=== PATIENT | female | born 1945 | race Caucasian/White ===

== ENCOUNTER 2021-08-09 14:38 | Outpatient (CLI) | payer MEDICARE ==
[~2021-08-09 14:38] MED LIST: ACET325T53 PO; Bisacodyl RC; Diazepam PO; Docusate Sodium PO; HYDR-3974 PO; Loratadine PO; RIVA10TA PO; SIMV20TA2 PO
[2021-08-16] MEDS ORDERED: FAMO20TA80 PO (13:53)
[2021-08-16] MEDS ORDERED: DOCU100C36 PO (13:53)
[2021-08-16] MEDS ORDERED: RIVA10TA PO (13:53)
== END 2021-08-09 23:59 | disposition home or self-care (01) ==
LOC: LAB 14:38
PROVIDERS: ATTEND Specialist
DX: Z53.8 Procedure and treatment not carried out for other reasons (principal)
CPT/HCPCS: U0003

== ENCOUNTER 2021-08-15 05:07 | Inpatient (IN) | payer MEDICARE, BC ==
[~2021-08-15] VITALS: Ht 157.5 cm; Wt 72.6 kg
--- NOTE | 2021-08-15 06:33 | NUR ---
DAY SURGERY NOTES PATIENT ARRIVED AT 0530. AOx4, ABLE TO MAKE NEEDS KNOWN. ON RA AND TOLERATING WELL. NO SOB NOTED. NO S/SX OF RESPIRATORY DISTRESS NOTED. NO CURRENT IV ACCESS. SAFETY PRECAUTIONS IN PLACE: BED IN LOWEST, LOCKED POSITION, SIDERAILS UPx2, AND BRAKES ON. CALL LIGHT AND TABLE WITHIN REACH. CONSENTS OBTAINED. PATIENT STATES SHE WAS NPO SINCE 1900 LAST NIGHT (08/14/2021). WILL CONTINUE TO MONITOR.
[2021-08-15] MEDS ORDERED: POLYMYXIN B SULFATE 500,000 UNITS ONE (06:39)
[2021-08-15] MEDS ORDERED: ANESTHESIA TRAY IN PYXIS 1 EA TRAY MC ONE (06:40)
[2021-08-15] MEDS ORDERED: BUPIVACAINE 0.5 % PF 150 MG/30 ML VIAL ONE (06:40)
[2021-08-15] MEDS ORDERED: FENTANYL PF 100MCG/2ML AMPUL ONE (06:41)
[2021-08-15] MEDS ORDERED: ROCURONIUM BROMIDE 50 MG/5 ML ONE (06:42)
[2021-08-15] MEDS ORDERED: HYDROMORPHONE INJ 2 MG/ML DISP.SYRIN ONE (06:42)
[2021-08-15] MEDS ORDERED: TRANEXAMIC ACID 3,000 MG in SODIUM CHLORIDE IRRIG SOLUTION 70 ML IR ONE (07:00)
--- NOTE | 2021-08-15 07:06 | NUR ---
PT LEFT FLOOR @ 0640 WITH OR NURSES
[2021-08-15] MEDS ORDERED: hydrALAZINE HCL IV 20 MG VIAL ONE (09:22)
[2021-08-15] MEDS ORDERED: HYDROMORPHONE 1 MG/1 ML DISP.SYRIN ONE (09:34)
[2021-08-15] MEDS ORDERED: ACETAMINOPHEN 325 MG TABLET PO PRN ×3 (10:00→15:30)
[2021-08-15] MEDS ORDERED: BISACODYL SUPP (10 MG) 10 MG/SUPP.RECT SUPP.RECT RC PRN ×2 (10:00→15:30)
[2021-08-15] MEDS ORDERED: ONDANSETRON HCL/PF 4 MG/2 ML VIAL IVP PRN ×2 (10:00→11:00)
[2021-08-15] MEDS ORDERED: HYDROCODONE/APAP 5/325MG TABLET PO PRN (10:00)
[2021-08-15] MEDS ORDERED: ZOLPIDEM TARTRATE 5 MG TABLET PO PRN ×2 (10:00→11:00)
[2021-08-15] MEDS ORDERED: SENNOSIDES 8.6 MG TABLET PO PRN (10:00)
[2021-08-15] MEDS ORDERED: DOCUSATE SODIUM 250 MG CAPSULE PO PRN ×2 (10:00→15:30)
--- NOTE | 2021-08-15 10:20 | NUR ---
Patient admitted from recovery room, admit Dx is S/P left shoulder arthroplasty reported by marlen. Patient AO x 4, able to responds all stimuli. Respiratory even and unlabored on room air. Kept elevated HOB for ensure airway/aspiration precaution and remains lower position of the bed for safety. call light within reach, will continue to monitor.
[2021-08-15] MEDS: HYDROMORPHONE 1 MG/1 ML DISP.SYRIN IV PRN ×4 (10:38→21:31)
[2021-08-15] MEDS ORDERED: MORPHINE SULFATE INJ 2 MG/ML DISP.SYRIN IV PRN (11:00)
[2021-08-15] MEDS: DOCUSATE SODIUM 100 MG CAPSULE PO SCH ×2 (11:00→17:27)
[2021-08-15] MEDS ORDERED: MAGNESIUM HYDROXIDE 30 ML UDC PO PRN (11:00)
[2021-08-15] MEDS ORDERED: Z GUARD REMEDY 4 OZ OINT TP PRN (11:00)
[2021-08-15] MEDS ORDERED: MAG HYDROX/AL HYDROX/SIMETH 30 ML UDC PO PRN ×2 (11:00→12:00)
[2021-08-15] MEDS ORDERED: IV NS 0.9% 1,000 ML IV PRN (11:00)
[2021-08-15] MEDS ORDERED: HYDROCODONE/APAP 10/325MG TABLET PO PRN (11:00)
[2021-08-15] MEDS ORDERED: HYDROMORPHONE 1 MG/1 ML DISP.SYRIN IV ONE (11:42)
[2021-08-15 12:00] VITALS: BP 118/62
[2021-08-15] MEDS ORDERED: ONDANSETRON HCL/PF 4 MG/2 ML VIAL IV PRN (12:00)
[2021-08-15] MEDS ORDERED: MENTHOL/CETYLPYRD (CEPACOL) 1 LOZ LOZENGE PO PRN (12:00)
[2021-08-15] MEDS ORDERED: diphenhydrAMINE HCL 25 MG CAPSULE PO PRN (12:00)
[2021-08-15] MEDS ORDERED: DIAZEPAM 5 MG TABLET PO PRN ×2 (12:00→15:30)
[2021-08-15] MEDS ORDERED: oxyCODONE IR immediate release 5 MG PO ONE (12:15)
[2021-08-15 16:00] VITALS: BP 114/62
[2021-08-15] MEDS: ANCEF 1 GM/50 ML D5W IV SCH (17:29)
--- NOTE | 2021-08-15 18:00 | NUR ---
RN Closing Note Patient in bed, resting. No distress observed. Skin is warm to touch. Respiratory even and unlabored. Will endorse card maker.
--- NOTE | 2021-08-15 19:40 | NUR ---
RN NOTES RECEIVED PATIENT AWAKE ON HIS BED, S/P ARTHROPLASTY ON HER LEFT SHOULDER, WITH SHOULDER SLING, COMPLAINED OF PAIN ON HER LEFT SHOULDER , WILL CHECKED THE PAIN MEDICATION IF IT'S DUE, CALL LIGHT WITHIN REACH, SIDERAILSUPX2, WILL CONTINUE TO MONITOR
[2021-08-15] MEDS: FAMOTIDINE (20 MG) 20 MG TABLET PO SCH (20:21)
[2021-08-15] MEDS: oxyCODONE IR immediate release 5 MG PO PRN (20:21)
[2021-08-15] MEDS ORDERED: LORATADINE 10 MG TABLET PO SCH (22:00)
[2021-08-15] MEDS ORDERED: SIMVASTATIN 20 MG TABLET PO SCH (22:00)
[2021-08-16] MEDS: ANCEF 1 GM/50 ML D5W IV SCH ×2 (00:13→10:49)
[2021-08-16] MEDS: HYDROMORPHONE 1 MG/1 ML DISP.SYRIN IV PRN ×4 (00:35→08:34)
--- NOTE | 2021-08-16 00:35 | NUR ---
RN NOTES COMPLAINED OF LEFT SHOULDER P[AUIN- DILAUDID 0.5MG IV GIVEN ORDERED
--- NOTE | 2021-08-16 03:29 | NUR ---
RN NOTES COMPLAINED OF LEFT SHOULDER PAIN- DILAUDID 0.5MG PO GIVEN ORDERED, V/S STABLE
--- NOTE | 2021-08-16 05:00 | NUR ---
RN NOTES NOTICED RIGHT ARM IS SLIGHTLY SWOLLEN BUT IV LINE STILL GOOD. OFFERED TO INSERT ANOTHER LINE ON THE ARM BUT PATIENT REFUSED, PT. STATED THAT IV ACCESS STILL GOOD
--- NOTE | 2021-08-16 05:41 | NUR ---
RN NOTES COMPLAINED OF LEFT SHOULDER PAIN0 -DILAUDID 0.5MG IV ORDERED
--- NOTE | 2021-08-16 06:05 | NUR ---
RN NOTES DR. BOTELLO CALLED AND ASKED WHEN WAS THE LAST TIME PATIENT TOOK HER PAIN MEDICATION AND GAVE A TELEPHONE ORDER TO GIVE VALIUM 5MG PO NOW, ORDER NOTED AND CARRIED OUT
--- NOTE | 2021-08-16 06:27 | NUR ---
RN NOTES AWAKE, DENIES PAIN AT THIS TIME, DR BOTELLO AND TALKED TO THE PATIENT AND CLEARED THE PATIENT FOR DISCHARGE, NO SOB, CALL LIGHT WITHIN REACH, SIDERAILSUPX2, PT. NEEDS ATTENDED
[2021-08-16 06:51] LABS: BASOPHILS % (AUTO) 0.2 % (0.0-2.0); EOSINOPHILS % (AUTO) 0.1 % (0.0-6.0); HEMATOCRIT 37 % (33-45); HEMOGLOBIN 11.8 g/dL (11.5-14.8); LYMPHOCYTES # (AUTO) 1.7 K/uL (0.8-4.8); LYMPHOCYTES % (AUTO) 9.3 % (20.0-44.0); MEAN CORPUSCULAR HGB CONC 32 g/dl (31.0-36.0); MEAN CORPUSCULAR VOLUME 97 fL (82-100); MONOCYTES # (AUTO) 2.5 K/uL (0.1-1.30); MONOCYTES % (AUTO) 13.2 % (2.0-12.0); NEUTROPHILS # (AUTO) 14.4 K/uL (1.8-8.9); NEUTROPHILS % (AUTO) 77.2 % (43.0-81.0); PLATELET COUNT (AUTO) 595 K/uL (150-450); RED BLOOD CELL COUNT(AUTO) 3.79 MIL/uL (4.0-5.2); WHITE BLOOD COUNT (AUTO) 18.7 K/uL (4.3-11.0)
[2021-08-16 07:24] LABS: CALCIUM, SERUM 7.9 mg/dL (8.5-10.1); CREATININE 0.7 mg/dL (0.6-1.3); MAGNESIUM 2.4 mg/dL (1.8-2.4); PHOSPHORUS 3.9 mg/dL (2.5-4.9); POTASSIUM 3.8 mmol/L (3.5-5.1)
[2021-08-16 08:00] VITALS: BP 119/67
[2021-08-16] MEDS: DOCUSATE SODIUM 100 MG CAPSULE PO SCH (08:33)
[2021-08-16] MEDS: FAMOTIDINE (20 MG) 20 MG TABLET PO SCH (08:33)
[2021-08-16] MEDS ORDERED: RIVAROXABAN 10 MG TABLET PO SCH ×2 (09:00)
--- NOTE | 2021-08-16 11:56 | NUR ---
SS Consult: SS consult for left shoulder pain. Pt. Is a 76-year-old White female. Pt. demonstrates adequate insight to the reason for hospitalization. Per pt., she was brought to hospital by her two daughters [Jillian [phone] and Elana [phone]] due to shoulder pain. Pt. was oriented x3, alert, and cooperative. During interview, pt. was capable of following directions, made appropriate eye-contact, and appeared well-groomed. Pt.s speech was at a normal rate. Pt.s mood was elevated. SW explored pt.s hx of mental health and substance abuse. Pt. reported no hx of mental health, substance abuse, suicidal or homicidal ideation. Pt. denies auditory hallucinations, visual hallucinations, paranoia, or delusions. ROCK explored pt.s living situation. Per pt., she lives alone and has a dog [[id number] [place] [address]]. Her two daughters live in [place], but they are currently in town to take care of pt. Pt. is ambulatory and is independent with ADLs. Pt. stated that she has no caregiver and does not need one. Per pt., she reports having adequate support from her daughters. Pt. mentioned that they call often when they are in [place]. Plan: ROCK provided available resources and pt. accepted. Once discharge, per pt., she will return home [[id number] [place] [address]]. Pt. stated that her daughters will be taking her home. ROCK made an APS report due to self-neglect. APS report Intake #[id number] Resources Provided: ABUSE PREVENTION: ELDER ABUSE HOTLINE (16/02) ADULT PROTECTIVE SERVICES HOTLINE LONG-TERM CARE [facility] Region AREA ON AGING (HOTLINE) ADULT DAY HEALTH CARE CARE CENTERS: Private pay or Medi-marlon funded adult day care [place] [facility] , [facility] , [facility] Adult Care Center , [facility] Adult Day Health Care , [facility] Adult Day Health Care , [facility] Adult Daycare Center , [place] ONE Generation Center , Shoaib Agarwal [facility] , [place] ALZHEIMERS DISEASE/DEMENTIA: Alzheimers Association Helpline [facility] Chapter www.alz.org/[facility] Department of Aging www.lacity.org Family Caregiver Martin www.caregiver.org [place] Caregiver Resources Center/Family Support www.[facility].org CANCER RESOURCES: [place] Cancer Society www.cancer.org Cancer Support Community www.CancerSupportVvsb.org: CancerCare www.cancercare.org [facility] Cancer Support [place] www.[facility].org [facility] HE[facility] ASSOCIATIONS: AARP www.aarp.org ALS Association (ask for Edwina) www.als.org [place] Diabetes Association www.diabetes.org [place] Heart Association www.heart.org [place] Lung Association www.lungusa.org [place] Parkinson Disease Association www.apdaparkinson.org Mauritian [place] , www.redcross.org Arthritis Foundation www.arthritis.org Crohns & Colitis Foundation of Mauritian www.ccfa.org/chapters/tatum National Multiple Sclerosis Society www.nationalmssociety.org Myasthenia Gravis Foundation www.myasthenia-ca.org National Stroke Association www.stroke.org CONSERVATORSHIP & GUARDIANSHIP: AARP Nisha Petersen Legal Services Center for Health Care Rights [place] Information and Referral Permastone Applicator Foundation [facility]: [facility] Bar Referral Service [facility] Legal Services Office of the Public Guardian [place] EYESIGHT DISORDER RESOURCES: [place] Macular Degeneration Foundation [facility] www.[facility].org GRIEF AND BEREAVEMENT RESOURCES: [facility] Place , [facility] THE [place]YSVALE Connection , [facility] Bere[facility]ment Center , [place] HEARING DISORDER RESOURCES: [place] Telephone Access Program Deaf and Disabled Telecommunications Program www.ddtp.cpu.ca.gov HearRx Hearing Centers ([place]) Better Hearing Systems , [place] GLAD ([facility] Agency on Deafness) V/ TTY; Tank Refinisher , [facility] Hearing [facility] -low income hearing aid assistance www.Amber Networkshearingfoundation.org [place] [facility] , Laz HELP AT HOME CAREGIVER SUPPORT: In Home Support Services (Must have Medi-Marlon to be eligible) *Ask for a list of agencies that provide services to assist with care in the home. Local Senior Centers also have listings of care providers. HOME SAFETY MODIFICATIONS AND EQUIPMENT: Senior centers have additional referrals. [place] Housing and Community Investment Dept. Handyworker Program (low income) or Visit http://hcidla.lacity.org/gcl-bpvajv-qu for more information National Seating and Mobility and/or ; Forever Active www.foreveractivemed.MOGL Stay Home Safe www.StayhomDiagnotes, Inc..MOGL LIFE ALERT RESPONSE SYSTEM: Netsertive, Inc Services 535-474-8226 www. Peak Positioning Technologies Life Alert 715-286-9898 www.Spinnaker Coating Life Station 084-920-0464 www.ExecNote.MOGL Safe Return 720-587-6006 www.ExpoPromoter.or/safereturn Cell Phones for Seniors www.Profex MEALS AND FOOD PROGRAMS: [place] Meals on Wheels [phone] [place] Meals on Wheels [phone] [facility] [phone] [place] to the Homebound [phone] [place] to the Homebound [phone] [facility] to the Homebound [phone] [facility] to the Homebound [phone] [facility] [phone] [facility] [phone] ONE Generation [phone] [facility] [phone] [facility] [phone] Meals on Wheels [phone] For all ages: $6.85/ meal w side. Delivered M-F from 10 am-1pm. Application and payment is done over the phone. Frozen meals available for weekends. Emergency Food [facility] [phone] [facility] Gill Box Operator [phone] [facility] [phone] [facility]- Brown bag lunches [phone] [facility] [phone] MEAL/GROCERY DELIVERY PROGRAMS: [facility] Meals [phone]- [facility] [phone]- [facility] Magic Kitchen [phone] Moms Meals [phone] (ask Dominguez for Discount Select grocery stores may provide delivery. MEDICAL INSURANCE SUPPORT SERVICES: Center for Health Care Rights [phone] Health Insurance Counseling/Advocacy Programs (HICAP)-Must have Medicare. Offers counseling for Medi-Marlon eligibility [phone] [facility] of Public Gill Box Operator [phone] www.[facility].ca.gov Medicare 567-601-4755 www.socialsecurity.org Social Security [phone] SENIOR ACTIVITY PROGRAMS: *Contact a local senior center, adult school, recreation facility or community college for education, fitness, recreation, and social programs. Aquatic Therapy and Adapted Exercise programs through [facility] [phone] Encore at [facility] [phone] www.[facility]/encore U- Senior Friends [phone] [place] Senior Programs [phone] www.oasisnet.org Suddenly 65 www.kjkmwbum23.com SENIOR CENTERS: [facility] Senior [place] [phone] [facility] [phone] [facility] [phone] [facility] [phone] [facility] [phone] [facility] [phone] [facility] [phone] [facility] [phone] One Generation, [facility] [phone] [facility] [phone] [facility] [phone] [facility] [phone] [facility] [place] [phone] TRANSPORTATION: Local [facility] may have applications for transportation programs and additional resources. ACCESS Services [phone] Transportation for seniors and disabled persons 7 days a week requiring 254 hr. advance reservation. Must apply and register for program ava eligible. CITY RIDE 545-065-9209 or [phone] Transportation for seniors and persons with ADA card/metro disabled card in the [facility]. M-F only. Must register for services. ONE GENERATION [phone] Serves 65 years + in conjunction with SimplyGiving.com ride program. Must be registered with both programs. A to B Transport [phone] Provides wheelchair/gurney van service. Adult Medical Transport [phone] Accepts [facility] with prior authorization. Care Van [phone] Provides wheelchair Transport. [facility] Wide Transportation [phone] Provides gurney service Gentle Care [phone] Gurney Transport. [facility] Transportation [phone] wheelchair & gurney transport [facility] Transportation [phone] wheelchair & gurney transport [place] Non-Emergency Transport [phone] wheelchair & gurney transport [facility] Living [place] [phone] Short Term Transportation primarily for adults with disabilities on social security income. Nominal fee may apply and a reservation is required. City Cab [phone] or [phone] [facility] [phone] [place] [address] Referral Services -[phone] For additional programs & services VETERANS RESOURCES: Submissions for Aid and Attendance should be done directly to Federal VA office locatd at : [facility] [id number] [place] [phone] National Caregiver Support Line [phone] [facility] Veterans Services Field Office [phone] [place] Department of [place] Affairs [phone] Pension Information [phone]
[2021-08-16] MEDS: oxyCODONE IR immediate release 5 MG PO PRN (13:23)
[2021-08-16] MEDS ORDERED: RIVA10TA PO (13:53)
[2021-08-16] MEDS ORDERED: DOCU100C36 PO (13:53)
[2021-08-16] MEDS ORDERED: FAMO20TA80 PO (13:53)
--- NOTE | 2021-08-16 14:00 | NUR ---
Patient discharge to home, given discharge instruction include new medications/side effects. Patient does no distress, respiratory even and unlabored on room air. Left facility accompanied by staff and 2 DTRs to the private car. In salable condition. Addendum: 08/16/21 at 1430 by VALERIE PINEDO RN error
--- NOTE | 2021-08-16 14:00 | NUR ---
Patient discharge to home, given discharge instruction include new medications/side effects. Patient does no distress, respiratory even and unlabored on room air. Left facility accompanied by staff and 2 DTRs to the private car. In salable condition. Patient mentioned that she has office number and follow up appt. date with Dr. Mahoney already.
[2021-08-30] MEDS ORDERED: ASPIRIN 325 MG TABLET PO SCH (09:00)
== END 2021-08-16 15:24 | disposition home or self-care (01) | DRG 483 ==
LOC: DS 05:07 → MED 05:08
PROVIDERS: ADMIT Nurse Practitioner Acute Care; ATTEND Nurse Practitioner Acute Care
PROC: 0RRK00Z Replacement of Left Shoulder Joint with Reverse Ball and Socket Synthetic Substitute, Open Approach (ICD-10-PCS; principal; 2021-08-15)
PROC: 0LS40ZZ Reposition Left Upper Arm Tendon, Open Approach (ICD-10-PCS; 2021-08-15)
DX: M75.102 Unspecified rotator cuff tear or rupture of left shoulder, not specified as traumatic (principal); F41.9 Anxiety disorder, unspecified; M81.0 Age-related osteoporosis without current pathological fracture; J44.9 Chronic obstructive pulmonary disease, unspecified; Z96.653 Presence of artificial knee joint, bilateral; E78.5 Hyperlipidemia, unspecified; Z86.718 Personal history of other venous thrombosis and embolism; Z96.611 Presence of right artificial shoulder joint; E66.9 Obesity, unspecified; Z68.29 Body mass index [BMI] 29.0-29.9, adult; E78.00 Pure hypercholesterolemia, unspecified; G47.00 Insomnia, unspecified; J30.9 Allergic rhinitis, unspecified; M75.22 Bicipital tendinitis, left shoulder
CPT/HCPCS: 36415; 80048-TC; 83735-TC; 84100-TC; 85025-TC; 87081-TC; A4217; G0378; J0360; J0690; J1100; J1170; J2405; J2704; J3010; J3490; J7030; J7060